=== PATIENT | male | born 1960 | race Caucasian/White ===

== ENCOUNTER 2022-08-08 19:27 | Observation (INO) ==
[2022-08-08] MEDS ORDERED: NS 1,000 ML IV 1,000 ML IV ONE (19:48)
[2022-08-08] MEDS ORDERED: GLUCAGEN SC ONE (19:48)
[2022-08-08] MEDS ORDERED: GLUCAGEN IVP ONE (19:51)
[2022-08-08] MEDS ORDERED: GLUCAGEN ONE (19:51)
[2022-08-08] MEDS ORDERED: NS 1,000 ML IV 1,000 ML ONE (19:52)
[2022-08-08 20:08] LABS: MEAN PLATELET VOLUME 7.8 fL (7.4-11.0)
[2022-08-08 20:11] LABS: BASOPHILS % (AUTO) 0.6 % (0.2-1.0); EOSINOPHILS # (AUTO) 0.1 x10^3/uL (0.0-0.2); HEMATOCRIT 45.2 % (42.0-54.0); HEMOGLOBIN 15.5 g/dL (13.5-18.0); LYMPHOCYTES # (AUTO) 0.7 X10^3/uL (1.3-2.9); LYMPHOCYTES % (AUTO) 8.6 % (21.0-51.0); MEAN CORPUSCULAR HEMOGLOBIN 36.2 pg (27.0-34.0); MEAN CORPUSCULAR HGB CONC 34.3 g/dL (33.0-35.0); MEAN CORPUSCULAR VOLUME 105.6 fL (80.0-100.0); MONOCYTES # (AUTO) 0.4 x10^3/uL (0.3-0.8); MONOCYTES % (AUTO) 4.8 % (0.0-13.0); NEUTROPHILS # (AUTO) 6.6 x10^3/uL (2.2-4.8); RED BLOOD COUNT 4.28 X10^6/uL (4.7-6.0); RED CELL DISTRIBUTION WIDTH 13.9 % (11.6-16.5); WHITE BLOOD COUNT 7.7 X10^3/uL (3.6-10.0)
[2022-08-08 20:23] LABS: ALANINE AMINOTRANSFERASE 24 Units/L (12-78); ALBUMIN 3.6 g/dL (3.4-5.0); ALKALINE PHOSPHATASE 70 Units/L (46-116); ASPARTATE AMINO TRANSFERASE 28 Units/L (15-37); BLOOD UREA NITROGEN 12 mg/dL (7-18); CALCIUM 8.3 mg/dL (8.5-10.1); CARBON DIOXIDE 26.5 mmol/L (21-32); CHLORIDE 105 mmol/L (98-107); COR NA(FOR HYPERGLY) 141 mmol/L (136-145); CREATININE 1.06 mg/dL (0.70-1.30); SODIUM 141 mmol/L (136-145); TOTAL PROTEIN 6.8 g/dL (6.4-8.2); eGFR NON BLACK RACES > 60 (>60)
[2022-08-08 20:25] LABS: PLATELET MORPHOLOGY COMMENT NORMAL (NORMAL)
--- NOTE | 2022-08-08 20:26 | DR.FB ---
HPI Time Seen Time Seen by Provider: 08/08/22 20:25 PCP Primary Care Physician: NEVA HPI Comment HPI Comment: Ate hot dog for lunch and since has not been able to swallow or get anything down; feels like something is stuck in central epigastric region; no problems breathing; no cough or n/v; he's had similar episodes in the past which usually eventually resolves with drinking to force it down. Complaint Chief Complaint:: C/O FEELING SOMETHING IS STUCK IN HIS EPIGASTRIC AREA, STATES HE WAS EATING A HOTDOG AT LUNCH WHEN THIS STARTED, SINCE HE IS UNABLE TO SWALLOW LIQUID OR FOOD, DENIES PAIN, DENIES DIFFICULTY BREATHING Self Treatment fo Chief Complaint: NONE COVID-19 Coronavirus risk:travel/contact w/high risk person: No Has patient experienced Coronavirus symptoms: No Source History Provided: Patient and Significant Other Mode of Arrival Mode of Arrival: Ambulatory Timing Onset of Chief Complaint: 08/08/22 PMH PMH Past Medical History: No Past Surgical History: No Family History History of Family Medical Conditions: No Social History Does patient currently use any type of tobacco product: Yes Type of Tobacco Use: Cigarettes Alcohol Use: DAILY Do you use any recreational Drugs:: No Lives With: Spouse Lives Where: Home Travel Risk Coronavirus risk:travel/contact w/high risk person: No Has patient experienced Coronavirus symptoms: No Infectious screening Have you traveled outside the country in the last 6 months?: No Isolation: Standard ROS Review of Systems Constitutional: No Symptoms Reported Eyes: No Symptoms Reported ENTM: No Symptoms Reported Respiratoy: No Symptoms Reported Cardiovascular: No Symptoms Reported Gastrointestinal/Abdominal: See HPI Genitourinary: No Symptoms Reported Neurological: No Symptoms Reported Musculoskeletal: No Symptoms Reported Integumentary: No Symptoms Reported Hematologic/Lymphatic: No Symptoms Reported Endocrine: No Symptoms Reported Psychiatric: No Symptoms Reported PE Vital Signs Vitals: Temperature 98.1 F Pulse Rate 100 Respiratory Rate 20 Blood Pressure 116/73 O2 Sat by Pulse Oximetry 96 General Limitations: No Limitations General Appearance: Alert and In No Apparent Distress Eyes Eye exam: Normal Appearance ENT ENT Exam: Normal Exam Neck Neck Exam: Normal Inspection Chest Chest Inspection: Normal Inspection Respiratory Respiratory Exam: Normal Lung Sounds Bilat Cardiovascular Cardiovascular Exam: Regular Rate and Normal Rhythm Abdominal Exam Abdominal Exam: Normal Inspection, Normal Bowel Sounds and Soft Rectal Rectal Exam: Deferred Genitalia Genitalia: Deferred Neurologic Neurological Exam: Alert and Oriented X3 Psychiatric Psychiatric Exam: Normal Affect and Normal Mood Skin Skin Exam: Warm, Dry, Intact and Normal Color COURSE Consultation Call Returned: 21:24 (Dr Alston accepts admission.) ROR Labs Reviewed Laboratory Results Reviewed?: Yes Result Diagrams: 08/08/22 20:00 08/08/22 20:00 Laboratory: WBC 7.7 X10^3/uL (3.6-10.0) 08/08/22 20:00 RBC 4.28 X10^6/uL (4.7-6.0) L 08/08/22 20:00 Hgb 15.5 g/dL (13.5-18.0) 08/08/22 20:00 Hct 45.2 % (42.0-54.0) 08/08/22 20:00 MCV 105.6 fL (80.0-100.0) H 08/08/22 20:00 MCH 36.2 pg (27.0-34.0) H 08/08/22 20:00 MCHC 34.3 g/dL (33.0-35.0) 08/08/22 20:00 RDW 13.9 % (11.6-16.5) 08/08/22 20:00 Plt Count 228 X10^3/uL (150.0-450.0) 08/08/22 20:00 Plt Count Comment Adequate (ADEQUATE) 08/08/22 20:00 MPV 7.8 fL (7.4-11.0) 08/08/22 20:00 Neut % (Auto) 85.0 % (42.0-75.0) H 08/08/22 20:00 Lymph % (Auto) 8.6 % (21.0-51.0) L 08/08/22 20:00 [place] % (Auto) 4.8 % (0.0-13.0) 08/08/22 20:00 Eos % (Auto) 1.0 % (0.9-2.9) 08/08/22 20:00 Baso % (Auto) 0.6 % (0.2-1.0) 08/08/22 20:00 Neut # (Auto) 6.6 x10^3/uL (2.2-4.8) H 08/08/22 20:00 Lymph # (Auto) 0.7 X10^3/uL (1.3-2.9) L 08/08/22 20:00 [place] # (Auto) 0.4 x10^3/uL (0.3-0.8) 08/08/22 20:00 Eos # (Auto) 0.1 x10^3/uL (0.0-0.2) 08/08/22 20:00 Baso # (Auto) 0.0 X10^3/uL (0.0-0.1) 08/08/22 20:00 Absolute Nucleated RBC 0.0 /100WBC 08/08/22 20:00 Plt Morphology Comment Normal (NORMAL) 08/08/22 20:00 RBC Morphology Abnormal (NORMAL) 08/08/22 20:00 Macrocytosis Slight A 08/08/22 20:00 Sodium 141 mmol/L (136-145) 08/08/22 20:00 Corrected Sodium 141 mmol/L (136-145) 08/08/22 20:00 Potassium 4.1 mmol/L (3.5-5.1) 08/08/22 20:00 Chloride 105 mmol/L (98-107) 08/08/22 20:00 Carbon Dioxide 26.5 mmol/L (21-32) 08/08/22 20:00 BUN 12 mg/dL (7-18) 08/08/22 20:00 Creatinine 1.06 mg/dL (0.70-1.30) 08/08/22 20:00 Est GFR (MDRD) Af Amer > 60 (>60) 08/08/22 20:00 Est GFR (MDRD) Non-Af > 60 (>60) 08/08/22 20:00 Glucose 118 mg/dL (65-99) H 08/08/22 20:00 Calcium 8.3 mg/dL (8.5-10.1) L 08/08/22 20:00 Corrected Calcium TNP 08/08/22 20:00 Total Bilirubin 0.40 mg/dL (0.2-1.0) 08/08/22 20:00 AST 28 Units/L (15-37) 08/08/22 20:00 ALT 24 Units/L (12-78) 08/08/22 20:00 Alkaline Phosphatase 70 Units/L (46-116) 08/08/22 20:00 Total Protein 6.8 g/dL (6.4-8.2) 08/08/22 20:00 Albumin 3.6 g/dL (3.4-5.0) 08/08/22 20:00 Globulin 3.2 g/dL (2.5-4.5) 08/08/22 20:00 Albumin/Globulin Ratio 1.1 Ratio (1.1-2.1) 08/08/22 20:00 XRAY XRAY Interpreted by: Radiologist and Self X-ray Results: pcxr: no foreign body appreciated ct chest: 1. Impacted food bolus in the distal esophagus favored, with air-fluid level above this. Gastroenterology follow-up with EGD recommended. Underlying lesion not excluded. 2. Multiple bilateral lung nodules, largest in the superior segment left lower lobe along the major fissure measuring up to 7 mm. Short-term 3 to six-month chest CT follow-up recommended. 3. COPD, vascular calcifications and other findings as above. ct abd: 1. Impacted food bolus in the distal esophagus with air-fluid level above suspected. Gastroenterology consultation recommended. 2. Follow-up to exclude underlying lesion recommended 3. Left lower lobe lung nodule and COPD. CT chest follow-up in 12 months recommended. 4. Vascular plaque without other acute abdominal abnormality identified Opioid Opioid Risk Tool Age (Prosper box if 16-45): No Total: 0 Total Score Risk Category: Low Risk Copyright: Mikie TADEO predicting aberrant behaviors Discharge Plan Diagnosis Discharge Problem: Food impaction of esophagus Discharge Plan Patient Disposition: ADMITTED INPATIENT Condition: Stable
--- NOTE | 2022-08-08 21:20 | RAD ---
STUDY: FRONTAL VIEW CHESTCOMPARISON: NoneHISTORY: pt c/o food stuck in epigastric areaFINDINGS:Diffuse COPD/emphysema is noted.No focal consolidation is seen.The heart size is within normal limits.The mediastinum is unremarkable.There is no evidence of pleural effusion or gross pneumothorax.The trachea is midline.There is no radiopaque foreign body seen on the region of the upper abdomen or in the lower esophageal region. The lodged ingested food may be better visualized with a CT scan if this is felt to be clinically indicated.IMPRESSION:1. No focal consolidation is seen.2. There is no radiopaque foreign body seen on the region of the upper abdomen or in the lower esophageal region. The lodged ingested food may be better visualized with a CT scan if this is felt to be clinically indicated.Electronically signed by: Abraham Wheeler (Aug 08, 2022 21:18:18)
--- NOTE | 2022-08-08 21:22 | CT ---
CT abdomen with contrastIndication: Possible foreign body within the esophagusTECHNIQUEHelical images through the abdomen after IV contrast. Coronal and sagittal reformats provided.Comparison: CT chest from the same day.FINDINGS: Limited images through the lower chest demonstrate fluid level in the esophagus with possible impacted food bolus on axial image 16. This low-density material measures about 11 x 17 mm. CC dimensions are 19 mm on coronal image 19. Esophageal thickening is noted. COPD noted. Left lower lobe lung nodule noted on axial image 14, measuring 5 mm. 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 No destructive osseous lesions seen.Abdomen: The gallbladder is normal. Liver, spleen and adrenal glands are normal. The pancreas is normal. Stomach and visualized small bowel loops show no acute abnormality. Visualized colonic loops are normal. Kidneys show no stone or hydronephrosis. Aortic plaque noted.IMPRESSION:1. Impacted food bolus in the distal esophagus with air-fluid level above suspected. Gastroenterology consultation recommended.2. Follow-up to exclude underlying lesion recommended3. Left lower lobe lung nodule and COPD. CT chest follow-up in 12 months recommended.4. Vascular plaque without other acute abdominal abnormality identifiedElectronically signed by: JAVIER GOODRICH (Aug 08, 2022 21:21:05)
--- NOTE | 2022-08-08 21:26 | CT ---
CT chest with contrastIndication: Foreign body sensation in the pastTechnique: Images through the chest after IV contrast. Coronal and sagittal reformats provided.COMPARISONCT abdomen and pelvis from the same dayFINDINGSReview of bone windows demonstrate no destructive osseous lesion. Abdominal findings dictated separatelyProbable fluid bolus in the distal esophagus as described on the abdomen CT report. This is seen on coronal image 19 and axial image 80. There is dilatation of the soft Nathanael with fluid above this level.Chest wall soft tissues show no acute abnormality. Postsurgical change right hemithyroidectomy favored. Aortic arch and branch vessels show few calcifications. Heart size is normal. Pulmonary arteries are normal in size.No mediastinal abnormality identified.There is no pneumothorax or effusion. Left lower lobe lung nodule seen on axial image 76, measuring 5 mm. Tiny left lower lobe lung nodule on axial image 72 measures 3 mm. Nodule along the major fissure superior segment left lower lobe measures 7 mm on axial image 28. Scarring in the apices noted. There is no dense consolidation. Small nodular density along the major fissure on the right on axial image 54 measures 3 mm. 3 mm right lower lobe nodule seen on axial image 58.IMPRESSION1. Impacted food bolus in the distal esophagus favored, with air-fluid level above this. Gastroenterology follow-up with EGD recommended. Underlying lesion not excluded.2. Multiple bilateral lung nodules, largest in the superior segment left lower lobe along the major fissure measuring up to 7 mm. Short-term 3 to six-month chest CT follow-up recommended.3. COPD, vascular calcifications and other findings as above.Electronically signed by: JAVIER GOODRICH (Aug 08, 2022 21:24:53)
[2022-08-08] MEDS ORDERED: ZOFRAN INJ 4 MG VIAL IVP PRN (21:35)
[2022-08-08] MEDS ORDERED: MORPHINE SULFATE INJ 2 MG INJ IVP PRN (21:35)
[2022-08-08] MEDS: NS 1,000 ML IV 1,000 ML IV SCH (22:56)
[2022-08-08] MEDS: PROTONIX INJ 40 MG VIAL IVP SCH (22:58)
[2022-08-08 23:48] VITALS: BMI 15.3
[2022-08-09] MEDS: NS 1,000 ML IV 1,000 ML IV SCH (06:45)
[2022-08-09] MEDS: PROTONIX INJ 40 MG VIAL IVP SCH (09:45)
[2022-08-09] MEDS ORDERED: DIPRIVAN VIAL 20 ML ONE (10:48)
[2022-08-09 12:29] VITALS: BP 118/65
== END 2022-08-09 13:35 | disposition home or self-care (01) ==
LOC: ER 19:27 → MED/SURG 19:27
PROVIDERS: ADMIT Surgery; ATTEND Surgery
DX: T18.128A Food in esophagus causing other injury, initial encounter; K44.9 Diaphragmatic hernia without obstruction or gangrene; R91.8 Other nonspecific abnormal finding of lung field; X58.XXXA Exposure to other specified factors, initial encounter; J44.9 Chronic obstructive pulmonary disease, unspecified; K22.2 Esophageal obstruction; R13.11 Dysphagia, oral phase; K21.00 Gastro-esophageal reflux disease with esophagitis, without bleeding